=== PATIENT | female | born 1970 | race Caucasian/White ===

== ENCOUNTER → 2021-11-28 | Outpatient (CLI) | payer BC, MEDICARE, OTHER ==
[~2021-11-28] VITALS: Ht 162.6 cm; Wt 65.4 kg
[~2021-11-28] MED LIST: BACTRIM DS 8001 TAB PO; CARDURA 2MG2 MG PO; FELDENE10 MG PO; FOLIC ACID 11 MG/TA1 PO; IMURAN 50MG TAB50 MG PO; JANUMXR500-50 PO; LANTUS100 U/ML SQ; LASIX 20MG TABL20 MG PO; LIORESAL 1010 MG/TAB PO; MELATONIN5 M1 SL; MESTINON TIMES180 MG PO; NEXIUM 20MG CAP20 MG PO; NOVOLOG 100U100 U/ML SQ; PROTONIX 40MG T40 MG PO; PROZAC40 MG PO; PYRIDOSTIGMINE PO; UROXATRAL10 M1 PO; ZOFRAN 4MG T4 MG/TAB PO; ZYRTEC 10MG10 MG PO
[2021-11-28 07:32] VITALS: BP 123/73; PULSE 77; TEMP 98.1
--- NOTE | 2021-11-28 10:05 | NUR ---
procedure cancelled by dr Duran
== END ==
LOC: COL.RAD 06:48
DX: N13.30 Unspecified hydronephrosis (principal); Z90.6 Acquired absence of other parts of urinary tract

== ENCOUNTER → 2021-12-05 | Outpatient (CLI) | payer BC, MEDICARE, OTHER ==
[2021-12-05] VITALS (19 sets, daily range): BP systolic 106–131; BP diastolic 67–77; PULSE 71–82; TEMP 97.5
== END ==
LOC: COL.RAD 11:31
DX: N13.30 Unspecified hydronephrosis (principal); Z90.6 Acquired absence of other parts of urinary tract
CPT/HCPCS: C1729; J2250; J3010